=== PATIENT | female | born 1990 | race African-American/Black ===

== ENCOUNTER 2016-07-06 17:58 | Emergency (ER) | payer BC, OTHER ==
[2016-07-06 18:06] VITALS: BP 129/88; PULSE 102; RESP 18; TEMP 97.9
[2016-07-06] MEDS ORDERED: KETOROLAC 60 MG/2 ML VIAL IM STA (18:40)
--- NOTE | 2016-07-06 18:45 | ED ---
Back Pain HPI - General Chief Complaint: Back Pain/Injury Stated Complaint: FALL DOWN STAIRS 4 DAYS AGO, STILL IN PAIN Time Seen by Provider: 07/06/16 18:09 Source: patient, RN notes reviewed Limitations: no limitations - History of Present Illness Initial Comments: Patient is a 26-year-old female since emergency room for evaluation of back pain. Patient states she fell down 3 steps on . Patient states she went to [facility] where they did a CT of her brain and neck and it was negative. Patient states she was sent home with Tylenol 3 and Valium. Patient states her head and neck feel better but she began developing low back pain yesterday. Patient states the pain radiates more on the right side. Patient denies any recent fall since the first incident. Patient denies numbness or tingling going down her legs. Patient denies saddle anesthesia. Patient denies urinary or fecal incontinence. Patient denies pain or burning during urination, trouble urinating or blood in urine. Patient states pain is worse with movement. - Related Data Home Medications Medication Instructions Recorded Confirmed Diazepam [Valium] 5 mg PO HS 07/06/16 07/06/16 Previous Rx's Medication Instructions Recorded HYDROcodone/APAP 5-325MG [Algonac 1 tab PO Q6HR PRN #12 tab 07/06/16 5-325] Allergies Allergy/AdvReac Type Severity Reaction Status Date / Time No Known Allergies Allergy Verified 07/06/16 18:05 Review of Systems ROS Statement: Those systems with pertinent positive or pertinent negative responses have been documented in the HPI. ROS Other: All systems not noted in ROS Statement are negative. Past Medical History Past Medical History: No Reported History History of Any Multi-Drug Resistant Organisms: None Reported Past Surgical History: Section Additional Past Surgical History / Comment(s): left breast biopsy Past Psychological History: No Psychological Hx Reported Smoking Status: Never smoker Past Alcohol Use History: Occasional Past Drug Use History: None Reported General Exam - General Exam Comments Initial Comments: Sitting on exam bed in no acute distress. Limitations: no limitations General appearance: alert, in no apparent distress Head exam: Present: atraumatic, normocephalic, normal inspection Eye exam: Present: normal appearance ENT exam: Present: normal exam Neck exam: Present: normal inspection Respiratory exam: Absent: respiratory distress Back exam: Present: normal inspection, tenderness (Lumbosacral spine) Expanded Back exam: Negative Straight Leg Raising: Left, Right Neurological exam: Present: alert, oriented X3 Psychiatric exam: Present: normal affect, normal mood Skin exam: Present: warm, dry, intact, normal color. Absent: rash Course Vital Signs 07/06/16 18:01 Temperature 97.9 F Pulse Rate 102 H Respiratory 18 Rate Blood Pressure 129/88 O2 Sat by Pulse 100 Oximetry Medical Decision Making - Medical Decision Making Patient is a 26-year-old female presents to the emergency room for evaluation of low back pain from fall. Lumbosacral x-ray shows no acute findings. Will send patient home with pain medications have her follow-up with her primary care provider. Patient states she understands everything that was discussed with her. Return parameters discussed. Case discussed with Dr. García. - Radiology Data Radiology results: report reviewed, image reviewed Disposition Clinical Impression: Low back strain Disposition: HOME SELF-CARE Condition: Good Instructions: Acute Low Back Pain (ED) Additional Instructions: Take Algonac as needed for severe pain. Warm moist heat. Please follow-up with primary care provider in 24-48 hours for reevaluation. If any new symptom arises or symptoms worsen, return to ER as soon as possible. Prescriptions: HYDROcodone/APAP 5-325MG [Algonac 5-325] 1 tab PO Q6HR PRN #12 tab PRN Reason: Pain Referrals: None,Stated [Primary Care Provider] - 1-2 days Time of Disposition: 19:17
--- NOTE | 2016-07-06 19:03 | XR ---
EXAMINATION TYPE: XR lumbosacral spine min 4V DATE OF EXAM: 07/06/2016 6:57 PM COMPARISON: NONE HISTORY: Low back pain TECHNIQUE: 5 views FINDINGS: Lumbar vertebra have normal spacing and alignment. Posterior elements are intact. Sacroilia c joints are normal. IMPRESSION: Normal lumbar spine
== END 2016-07-06 19:37 | disposition home or self-care (01) ==
LOC: EC 17:58
DX: S39.012D Strain of muscle, fascia and tendon of lower back, subsequent encounter (principal); W10.9XXD Fall (on) (from) unspecified stairs and steps, subsequent encounter; Z79.899 Other long term (current) drug therapy
CPT/HCPCS: 99283; 96372; 72110; J1885